=== PATIENT | male | born 1950 | race Hispanic/Latino ===

== ENCOUNTER 2020-11-02 09:56 | Outpatient (CLI) | payer MEDICARE ==
--- NOTE | 2020-11-02 11:28 | XRay Report ---
ABDOMEN 1 VIEW 11/02/2020 INDICATION / CLINICAL INFORMATION: CALCULUS OF KIDNEY. COMPARISON: None available. FINDINGS: TUBES / LINES: None. BOWEL GAS PATTERN: No significant abnormality. FREE AIR / EXTRALUMINAL GAS: None seen. ADDITIONAL FINDINGS: There is calcific atherosclerosis. No dense calcifications are noted overlying t he renal fossa. IMPRESSION: 1. No dense callus occasions noted overlying the renal fossa. Signer Name: Donavon Urbina DO Signed: 11/02/2020 11:24 AM Workstation Name: [id number]
== END 2020-11-02 09:57 | disposition home or self-care (01) ==
LOC: SPVIMAG 09:56
PROVIDERS: ATTEND Urology
DX: N20.0 Calculus of kidney (principal)
CPT/HCPCS: 74018